=== PATIENT | female | born 1965 | race Caucasian/White ===

== ENCOUNTER 2018-06-25 11:59 | Emergency (ER) | payer OTHER ==
[~2018-06-25] VITALS: Ht 165.1 cm; Wt 98.0 kg
[2018-06-25 12:06] VITALS: BP 116/70
[2018-06-25] MEDS ORDERED: ALBU8.5H8 IH (13:55)
[2018-06-25] MEDS ORDERED: AZIT250T PO (13:55)
== END 2018-06-25 14:12 | disposition home or self-care (01) ==
LOC: ER 12:00
DX: J40 Bronchitis, not specified as acute or chronic (principal); Z79.2 Long term (current) use of antibiotics
CPT/HCPCS: 71045; 99283